=== PATIENT | female | born 1950 | race Caucasian/White ===

== ENCOUNTER 2020-10-13 01:54 | Observation (INO) ==
[2020-10-13] MEDS ORDERED: Ondansetron 4 MG/2 ML VIAL IVP PRN (03:57)
[2020-10-13] MEDS ORDERED: Naloxone 0.4 MG/ML INJ IVP PRN (03:57)
[2020-10-13] MEDS ORDERED: Acetaminophen 325 MG TABLET PO PRN (03:57)
[2020-10-13 04:14] VITALS: BP 98/59
[2020-10-13 05:18] LABS: Basophils % 0.3 %; Eosinophils % 0.1 %; Hematocrit 26.3 % (35.3-44.9); Hemoglobin 8.9 g/dL (11.5-15.4); Immature Granulocytes % 0.6 % (0-4); Lymphocytes # 1.4 K/mcL (0.6-4.6); Lymphocytes % 16.2 %; Mean Corpuscular HGB Conc 33.8 g/dL (31.6-35.5); Mean Corpuscular Hemoglobin 28.3 pg (28.0-33.3); Mean Corpuscular Volume 83.5 fL (83.0-100.0); Mean Platelet Volume 8.4 fL (9.4-12.4); Monocytes # 0.7 K/mcL (0.0-1.3); Monocytes % 7.6 %; Neutrophils # 6.6 K/mcL (1.6-8.9); Platelet Count 394 K/mcL (140-400); Red Blood Count 3.15 M/mcL (3.82-4.97); Red Cell Distribution Width 15.1 % (11.5-14.5); Segmented Neutrophils % 75.2 %; White Blood Count 8.8 K/mcL (4.3-11.1)
[2020-10-13 05:22] LABS: INR 1.8
[2020-10-13 05:24] LABS: Activated Partial Thrombo Time 33.8 Seconds (26.0-36.0)
[2020-10-13 05:39] LABS: Albumin 3.3 g/dL (3.5-5.7); Albumin/Globulin Ratio 0.9 (1.1-2.2); Bilirubin,Total 0.9 mg/dL (0.3-1.0); Calcium 8.5 mg/dL (8.6-10.3); Globulin 3.8 g/dL (2.4-3.5); Magnesium 1.4 mg/dL (1.6-2.6); Phosphorous 3.4 mg/dL (2.7-4.5); Potassium 3.1 mEq/L (3.5-5.1); Total Protein 7.1 g/dL (6.4-8.9)
[2020-10-13] MEDS ORDERED: Magnesium Sulfate 1 GM/102 ML PIGGYBACK IVPB ONE (06:19)
[2020-10-13] MEDS ORDERED: Potassium Chloride 40 MEQ, Lidocaine 1% 2 ML in 0.9 % Sodium Chloride 500 ML IVPB ONE (06:30)
[2020-10-13 06:41] LABS: Adenovirus Not Detected (Not Detect); Bordetella Pertussis Not Detected (Not Detect); Chlamydophila pneumoniae Not Detected (Not Detect); Coronavirus 229E Not Detected (Not Detect); Coronavirus HKU1 Not Detected (Not Detect); Coronavirus NL63 Not Detected (Not Detect); Coronavirus OC43 Not Detected (Not Detect); Human Metapneumovirus Not Detected (Not Detect); Human Rhinovirus/Enterovirus Not Detected (Not Detect); Influenza A Subtype 2009 H1 Not Detected (Not Detect); Influenza B Not Detected (Not Detect); Mycoplasma pneumoniae Not Detected (Not Detect); Parainfluenza Virus 1 Not Detected (Not Detect); Parainfluenza Virus 2 Not Detected (Not Detect); Parainfluenza Virus 3 Not Detected (Not Detect); Parainfluenza Virus 4 Not Detected (Not Detect); Respiratory Syncytial Virus Not Detected (Not Detect); SARS-CoV-2 Not Detected (Not Detect)
[2020-10-13] MEDS ORDERED: WATER FOR INJ IVPB ONE (07:54)
[2020-10-13] MEDS ORDERED: HUM PROTHROMBIN CPLX IVPB ONE (07:54)
[2020-10-13] MEDS ORDERED: [UNRECOGNIZED DRUG - OTHER] IVPB ONE (07:54)
[2020-10-13] MEDS ORDERED: cefTRIAXone 1,000 MG in Water for inj. (sterile) 10 ML IVP SCH (09:00)
== END 2020-10-13 09:46 | disposition short-term general hospital (02) ==
LOC: 2NENU → SUATTDRO 03:14
PROVIDERS: ADMIT Internal Medicine; ATTEND Internal Medicine